=== PATIENT | male | born 1945 | race Caucasian/White ===

== ENCOUNTER → 2017-09-07 09:30 | Outpatient (CLI) | payer MEDICARE, OTHER, SELFPAY ==
--- NOTE | 2017-09-07 | CYSPIN_PTH ---
PATIENT: ESTRELLA DE LA FUENTE LOC: [facility] U#:[id number] AGE/SX: 80/M ROOM: RE09/07/[address]: Dr. Gopi Mims MD : 1945 BED: DIS: SPEC #: [id number] RECD: 09/07/17 13:45 STATUS: ELIAN MIKE #: [id number] TRACIE: 09/07/17 00:[address]: Gopi Mims DEPT: CYTOLOGY RECD BY: Omar Yung Tissues: Urine Procedures: Pap Stain (control) Special Stain Group II Cytospin Fluid HEADER OPERATION: Not noted PRE-OP DIAGNOSIS: History bladder CA TISSUE SUBMITTED: Urine for cytology DIAGNOSIS CYTOLOGY Urine for cytology (cytospin): Rare atypical cells present. AM:loyda 09/08/17 COMMENT A low grade urothelial malignancy cannot be ruled out. Clinical correlation is suggested. CYTOLOGY STUDY Slides are reviewed. CYTOLOGY GROSS Received is 60 ml of clear yellow fluid labeled with the patient's name and and designated per the requisition as urine. Submitted for cytology preparation. 09/07/17 TC:5 CPT: 96016
[2017-09-07 12:58] LABS: Cytology, Body Fluid / CSF SEE PATHOLOGY REPORT
== END ==
PROVIDERS: Visit Provider Urology
DX: Z85.51 Personal history of malignant neoplasm of bladder (principal)
CPT/HCPCS: 88108; 88313

== ENCOUNTER → 2018-10-25 | Outpatient (CLI) | payer MEDICARE, SELFPAY ==
[2018-10-25 18:05] LABS: PSA,Total - Annual Screen 0.68 ng/mL (0.00-4.00)
== END | disposition home or self-care (01) ==
LOC: LAB 16:50
PROVIDERS: Family Provider Internal Medicine; PCP Internal Medicine; Referring Provider Nurse Practitioner Adult Health; Visit Provider Nurse Practitioner Adult Health
DX: Z12.5 Encounter for screening for malignant neoplasm of prostate (principal)
CPT/HCPCS: 36415; 84153; G0103

== ENCOUNTER → 2019-12-01 15:43 | Outpatient (CLI) | payer MEDICARE, SELFPAY ==
--- NOTE | 2019-12-01 10:45 | CYSPIN_PTH ---
PATIENT: ESTRELLA DE LA FUENTE LOC: [facility] U#:[id number] AGE/SX: 80/M ROOM: RE12/01/[address]: Dr. Gopi Mims MD : 1945 BED: DIS: SPEC #: [id number] RECD: 12/02/19 09:10 STATUS: ELIAN REGhislaine #: [id number] TRACIE: 12/01/19 10:[address]: Gopi Mims DEPT: CYTOLOGY RECD BY: Momo Hernandez ENTERED: 12/02/19 09:10 SP TYPE: CYSPIN FL OTHR DR: Dr. Lacy Duke MD Tissues: Urine Procedures: Pap Stain (control) Special Stain Group II Cytospin Fluid HEADER OPERATION: Not noted PRE-OP DIAGNOSIS: Malignant neoplasm of bladder TISSUE SUBMITTED: Urine for cytology DIAGNOSIS CYTOLOGY Urine for cytology (cytospin): Rare mildly atypical urothelial cells noted. Paucicellular specimen. See comment. SJ:loyda 12/05/19 COMMENT Clinical correlation and appropriate follow up are necessary. Please also make reference to previous specimen [id number], urine for cytology with diagnosis of rare atypical cells present. CYTOLOGY STUDY Slides are reviewed. CYTOLOGY GROSS Received is 80 ml of clear yellow fluid labeled with the patient's name and and designated per the requisition as urine. Submitted for cytology preparation. / loyda 12/02/19 TC:4 CPT: 71479
[2019-12-01 15:52] LABS: Cytology, Body Fluid / CSF SEE PATHOLOGY REPORT
== END ==
PROVIDERS: PCP Internal Medicine; Referring Provider Urology; Visit Provider Urology
DX: C67.2 Malignant neoplasm of lateral wall of bladder (principal)
CPT/HCPCS: 88108; 88313

== ENCOUNTER 2020-07-19 12:28 | Outpatient (RCR) | payer MEDICARE, SELFPAY ==
[2020-07-19] MEDS: COVID-19 VACC, MRNA(PFIZER)/PF 30 MCG/0.3 ML SYRINGE IM (16:51)
[2020-08-09] MEDS: COVID-19 VACC, MRNA(PFIZER)/PF 30 MCG/0.3 ML SYRINGE IM (16:42)
== END 2020-10-23 23:59 ==
LOC: IMMUN 12:28
PROVIDERS: PCP Internal Medicine; Visit Provider Family Medicine
DX: Z23 Encounter for immunization (principal)
CPT/HCPCS: 0001A; 0002A; 91300

== ENCOUNTER 2021-07-17 10:24 | Outpatient (CLI) | payer MEDICARE, SELFPAY | END 2021-07-17 23:59 | disposition home or self-care (01) | LOC: LABSPEC 10:27 | PROVIDERS: PCP Internal Medicine; Referring Provider Dermatology; Visit Provider Dermatology | DX: T81.40XA Infection following a procedure, unspecified, initial encounter (principal) | CPT/HCPCS: 87070; 87077; 87205 ==

== ENCOUNTER 2023-03-25 15:41 | Emergency (ER) | payer MEDICARE, SELFPAY ==
[2023-03-25 15:44] VITALS: BP 152/71; PULSE 75; RESP 18; TEMP 36; O2SAT 100; BMI 21.7
--- NOTE | 2023-03-25 17:19 | CT_ITS ---
STUDY: CT ABDOMEN AND PELVIS WITHOUT CONTRAST REASON FOR EXAM: Male, 78 years old. Right flank pain RADIATION DOSAGE (If Supplied By Facility): CTDIvol = ( 6.30 ) mGy, DLP = ( 289.70 ) mGycm TECHNIQUE: Transaxial images were obtained from the dome of the diaphragm to the symphysis pubis without oral contrast, and without intravenous contrast. Sagittal and coronal images were reconstructed. Individualized dose optimization techniques were used for this CT. COMPARISON: None. FINDINGS: The visualized lung bases are unremarkable. The visualized portions of the heart are within normal limits. 7 mm cyst in the liver. Normal gallbladder and extrahepatic biliary system. Normal spleen. Normal pancreas. Normal bilateral adrenal glands. Normal right kidney. Normal left kidney. Normal visualized stomach. Normal small intestine. Mild diverticulosis of the colon. The appendix is not visualized. Calcified abdominal aorta. Normal inferior vena cava. Normal retroperitoneum. Normal urinary bladder. Normal abdominal wall. Normal osseous structures. CT/Abdomen/Pelvis without Cont IMPRESSION: Mild colonic diverticulosis. Electronically Signed: Curtis Mendez DO at 18:19 [facility] Reading Location ID and State: [facility] / [place] Tel [phone], Service support ,
--- NOTE | 2023-03-25 17:20 | ED.VIS.FALL ---
HPI HPI - Fall History of Present Illness Chief Complaint: Fall Informant: patient Occured/Mechanism Occurred: Today Narrative: Patient fell while using a leaf blower Fall down steps #: 1 Pain/Injury Location: Right flank and abdomen Quality of Pain: Burning Worsened by: Certain movements and laying flat Relieved by: Nothing Associated Symptoms Associated Symptoms: Negative for Parasthesias, Weakness, Loss of function, Inability to ambulate, Loss of consciousness or Amnesia Narrative Narrative: Presents after a fall that occurred today. Patient states he was blowing leaves when he fell off 1 step. Patient states he injured his left forearm, his right periorbital area and his right flank area. Patient states the pain is worse over the flank area. Patient denies any loss of consciousness. Patient describes his pain as burning. Patient states it is worse with certain movements and with laying flat. Patient denies any paresthesias or weakness. Patient was able to ambulate after the fall. [facility] Medical History (Updated 03/25/23 @ 19:[address] Christopher Sanchez DO) Diabetes mellitus Allergy/AdvReac Type Severity Reaction Status Date / Time quinine Allergy PT UNSURE Verified 03/25/23 15:43 OF REACTION Surgical History Hx of appendectomy Social History Smoking Status: Never smoker ROS ROS ED Constitutional Constitutional ED: Denies chills or fever(s) Eyes Eyes: Denies blurry vision or change in vision ENT ENT ED: Denies rhinorrhea or sore throat Cardiovascular Cardiovascular: Denies chest pain or palpitations Respiratory/Chest Respiratory/Chest: Reports cough; Denies dyspnea Gastrointestinal Gastrointestinal: Reports abdominal pain; Denies nausea or vomiting Genitourinary Genitourinary ED: Denies dysuria or hematuria Musculoskeletal Musculoskeletal: Denies back pain or neck pain Integumentary Denies abscess or rash Neurologic Neurologic: Denies headache(s) or weakness Allergic/Immunologic Allergic/Immunologic ED: Denies mouth swelling or urticaria EXAM Physical Exam Const Vital Signs: 03/25/23 15:44 03/25/23 18:02 Temperature 96.8 F L Temperature Source Temporal Pulse Rate 75 Respiratory Rate 18 Respiratory Effort Normal Non-Labored Blood Pressure 152/71 H Blood Pressure Mean 98 Pulse Ox 100 Oxygen Delivery Method Room Air Positive well nourished and well developed General Appearance ED: well developed and NAD HEENT HEENT Narrative: There is a superficial abrasion over the lateral aspect of the right periorbital area. There is no active bleeding noted. There is no bony crepitance or step-off noted. Eyes PERRL and EOMs intact bilaterally Neck full ROM and no lymphadenopathy Chest Wall palpation of chest normal Resp normal respiratory effort and clear to auscultation bilaterally Cardio regular rate and regular rhythm GI GI Narrative: There is tenderness to palpation over the right upper and lower abdomen. There is no rebound or guarding noted. There are no masses palpated. There is no rebound noted. Palpation: soft; Negative for guarding or rebound tenderness present Neuro oriented x3, CN's II-XII intact bilaterally, moves all extremities, no focal motor deficits and no sensory deficits noted Sensorium / Orientation: alert Motor Exam: strength 5/5 throughout Psych mental status grossly normal and thought process normal Skin Skin Narrative: There is a superficial skin tear noted over the dorsal aspect of the left forearm. There is no active bleeding noted. There is no surrounding erythema. MDM MDM MDM Narrative Medical decision making narrative: Differential diagnosis includes intra-abdominal bleeding, lower rib fracture, renal injury, contusion. CBC will be obtained to assess for leukocytosis and anemia. Basic metabolic profile will be obtained to assess for electrolyte abnormality and renal function. Urinalysis will be obtained to assess for hematuria. CT scan of the abdomen pelvis will be obtained to assess for intra-abdominal injury and renal injury. Lab Data Attestation: I reviewed the patient's lab results. Lab results narrative: CBC was reviewed and showed a stable anemia with a hemoglobin of 12.3 and hematocrit 37.5. Basic metabolic profile was reviewed and was essentially within normal limits. Urinalysis was reviewed. There is no evidence of hematuria or urinary tract infection. Labs: Laboratory Results - last 24 hr 03/25/23 03/25/23 17:29 18:20 WBC 7.8 RBC 3.77 L Hgb 12.3 L Hct 37.5 L MCV 99.5 H MCH 32.6 H MCHC 32.8 RDW Std Deviation 50.7 H RDW Coeff of Leni 14.0 Plt Count 258 MPV 9.5 Immature Gran % (Auto) 0.300 Neut % (Auto) 67.1 Lymph % (Auto) 24.8 [place] % (Auto) 7.0 Eos % (Auto) 0.4 Baso % (Auto) 0.4 Absolute Neuts (auto) 5.3 Absolute Lymphs (auto) 1.94 Nucleated RBC % 0 Sodium 144 Potassium 3.8 Chloride 110 H Carbon Dioxide 29.0 Anion Gap 5 BUN 17 Creatinine 0.81 Estim Creat Clear Calc 70.07 Est GFR (MDRD) Af Amer 119 Est GFR (MDRD) Non-Af 98 BUN/Creatinine Ratio 21.0 H Glucose 166 H Calcium 8.6 Urine Color Yellow Urine Clarity Clear Urine pH 5.0 Ur Specific [place] 1.015 Urine Protein 15 H Urine Glucose (UA) 1000 H Urine Ketones 15 H Urine Occult Blood Negative Urine Nitrite Negative Urine Bilirubin Negative Urine Urobilinogen Normal Ur Leukocyte Esterase Negative Urine RBC 0 SEEN Urine WBC 0 SEEN Ur Squamous Epith Cells 0 SEEN Urine Bacteria 0 SEEN Urine Mucus 0 SEEN Radiography Diagnostic Testing: Clinical Impression(s) from Imaging Studies Abdomen/Pelvis CT 03/25/23 17:19 IMPRESSION: Mild colonic diverticulosis. Electronically Signed: Curtis Mendez DO at 18:19 EST Reading Location ID and State: [facility] / [place] Tel [phone], Service support , CT scan of the abdomen pelvis was obtained. There is mild diverticulosis but no diverticulitis. There is no free air or free fluid. There is no sign of obstruction or perforation. There is no internal bleeding noted. This was interpreted by the radiologist and was also independently reviewed by myself. Treatment and Re-Evaluation Narrative: Patient was advised of his findings. Patient is feeling better on reevaluation. Patient was instructed to use ice to the area. Patient was given a tetanus booster. Bacitracin dressings were applied to his skin tear. Patient was instructed to follow-up with his primary care physician in 5 to 7 days. Patient understood and was agreeable with the plan. All questions were answered. Discharge Plan Triage Chief Complaint: Fall ED Provider: Christopher Sanchez Dx/Rx/DC Orders Clinical Impression: Abdominal contusion, Skin tear of left forearm without complication, Head injury, Fall Instructions: ED Soft Tissue Contusion, ED Mechanical Fall, ED Head Injury (Adult) Primary Care Provider: Lacy Duke Referrals: Lacy Duke MD [Primary Care Provider] - 5-7 Days Disposition Disposition: Home, Self Care
[2023-03-25 17:46] LABS: Absolute Lymphocyte Count 1.94 X10^3/uL (0.83-4.51); Absolute Neutrophil Count 5.3 X10^3/uL (2.0-7.7); Basophil# 0.03 X10^3/uL; Basophil% 0.4 % (0-1); Eosinophil# 0.03 X10^3/uL; Eosinophils% 0.4 % (0-5); Hematocrit 37.5 % (40-54); Hemoglobin 12.3 g/dL (13.0-16.5); Lymphocyte # 1.94 X10^3/ul (0.83-4.51); Lymphocyte % 24.8 % (19-41); Mean Corp Hgb Conc 32.8 g/dL (32-36); Mean Corpuscular Hgb 32.6 pg (27.0-32.0); Mean Corpuscular Volume 99.5 fL (80-94); Mean Platelet Vol. 9.5 fl (6.2-12.0); Monocyte# 0.55 X10^3/uL; NRBC Flagged by Analyzer 0 % (0-5); Neutrophil # 5.25 X10^3/uL (2.7-7.7); Neutrophil % 67.1 % (47-70); Platelet Count 258 K/mm3 (150-450); RBC Distribution Width SD 50.7 fl (35.1-43.9); Red Blood Count 3.77 M/mm3 (4.6-6.2); White Blood Count 7.8 K/mm3 (4.4-11.0)
[2023-03-25 18:05] LABS: Anion Gap 5 (5-15); BUN 17 mg/dL (7-18); Calcium,Total 8.6 mg/dL (8.5-10.1); Chloride 110 mmol/L (98-107); Creatinine, Serum 0.81 mg/dL (0.70-1.30); EST Glomerular Filtration Rate 98 mL/min (>60); Est Glom Filt Rate - Afr Amer 119 mL/min (>60); Estimated Creatinine Clearance 70.07 ml/min; Glucose 166 mg/dL (74-106); Potassium 3.8 mmol/L (3.5-5.1); Sodium Level 144 mmol/L (136-145)
[2023-03-25 18:26] LABS: Bacteria 0 SEEN /hpf (None Seen); Mucous, Urine 0 SEEN /hpf (<or=2+); Red Blood Cells-Urine 0 SEEN /hpf (0-5); Squamous Epithelial Cells - UA 0 SEEN /hpf (0-5); White Blood Cells 0 SEEN /hpf (0-5)
[2023-03-25 18:27] LABS: Color, Urine Yellow (Yellow); Glucose, Dipstick 1000 mg/dl (Normal); Ketone-Dipstick 15 mg/dl (Negative); Leukocyte Esterase-Dipstick Negative /ul (Negative); Nitrite-Dipstick Negative (Negative); Occult Blood-Urine Negative /ul (Negative); Protein-Dipstick 15 mg/dl (Negative); Specific Gravity, Urine 1.015 (1.002-1.030); Urine Bilirubin Dipstick Negative (Negative); Urine Clarity Clear (Clear); Urine Urobilinogen Normal (Normal)
[2023-03-25] MEDS: Diphth,Pertuss(Acell),Tet Vac 0.5 ML Vial IM (19:32)
== END 2023-03-25 19:46 | disposition home or self-care (01) ==
PROVIDERS: Emergency Provider Emergency Medicine; PCP Internal Medicine; Visit Provider Emergency Medicine
DX: S09.90XA Unspecified injury of head, initial encounter (principal); E11.9 Type 2 diabetes mellitus without complications; S30.1XXA Contusion of abdominal wall, initial encounter; W10.9XXA Fall (on) (from) unspecified stairs and steps, initial encounter; Y93.89 Activity, other specified; Z90.49 Acquired absence of other specified parts of digestive tract; S50.912A Unspecified superficial injury of left forearm, initial encounter; Z23 Encounter for immunization
CPT/HCPCS: 74176; 80048; 81001; 85025; 90471; 90715; 99282

== ENCOUNTER → 2023-12-21 | Outpatient (CLI) | payer MEDICARE, SELFPAY ==
--- NOTE | 2023-12-21 | CYSPIN_PTH ---
PATIENT: ESTRELLA DE LA FUENTE LOC: [facility] U#:[id number] AGE/SX: 78/M ROOM: RE12/21/[address]: Portia Vazquez : 1945 BED: DIS: 12/21/2023 SPEC #: [id number] RECD: 12/22/23 09:25 STATUS: ELIAN MIKE #: [id number] TRACIE: 12/21/23 00:[address]: Portia Vazquez DEPT: CYTOLOGY RECD BY: Francesca Phoenix ENTERED: 12/22/23 09:25 SP TYPE: CYSPIN FL OTHR DR: MD Dr. Gopi Marlow MD Tissues: Urine Procedures: Pap Stain (control) Special Stain Group II Cytospin Fluid HEADER OPERATION: Not noted PRE-OP DIAGNOSIS: Malignant neoplasm of overlapping sites of bladder TISSUE SUBMITTED: Urine for cytology DIAGNOSIS CYTOLOGY Urine for cytology (cytospin): Negative for high grade urothelial carcinoma (Taty Category System II). See comment. AM/mr 12/22/2023 COMMENT The Taty System for urine cytology diagnostic categorization was used in the evaluation of this case. CYTOLOGY STUDY Slides are reviewed. CYTOLOGY GROSS Received is 100 ml of yellow-hazy fluid labeled with the patient's name and and designated per the requisition as urine. Submitted for cytology preparation. Mr 12/22/2023 TC:5 CPT: 61131
[2023-12-21 09:31] LABS: PSA,Total - Annual Screen 0.14 ng/mL (0.00-4.00)
[2023-12-21 16:16] LABS: Cytology, Body Fluid / CSF SEE PATHOLOGY REPORT
== END | disposition home or self-care (01) ==
PROVIDERS: PCP Internal Medicine; Referring Provider Nurse Practitioner; Visit Provider Nurse Practitioner
DX: Z12.5 Encounter for screening for malignant neoplasm of prostate (principal); C67.8 Malignant neoplasm of overlapping sites of bladder
CPT/HCPCS: 36415; 84153; 88108; 88313; G0103